=== PATIENT | male | born 1975 | race Caucasian/White ===

== ENCOUNTER 2017-04-26 21:01 | Emergency (ER) | payer SELFPAY, OTHER | END 2017-04-26 22:42 | disposition left against medical advice (07) | LOC: E/R 21:01 | DX: Z53.21 Procedure and treatment not carried out due to patient leaving prior to being seen by health care provider (principal) ==

== ENCOUNTER 2017-04-29 23:57 | Emergency (ER) | payer OTHER ==
[2017-04-30] MEDS: DIPHTH/TET/ACEL PERTUSS (ADULT) 0.5 ML VIAL IM* (04:06)
[2017-04-30] MEDS: LIDOCAINE 1% (MDV) 20 ML INJ SC (04:09)
== END 2017-04-30 04:32 | disposition home or self-care (01) ==
LOC: FTE 23:57
DX: L02.413 Cutaneous abscess of right upper limb (principal); L03.113 Cellulitis of right upper limb; F17.210 Nicotine dependence, cigarettes, uncomplicated; Z23 Encounter for immunization
CPT/HCPCS: 10060; 90471; 90715; 99284-25

== ENCOUNTER 2017-05-22 17:17 | Emergency (ER) | payer OTHER | END 2017-05-22 18:54 | disposition home or self-care (01) | LOC: FTE 17:17 | DX: G47.9 Sleep disorder, unspecified (principal); F17.210 Nicotine dependence, cigarettes, uncomplicated | CPT/HCPCS: 99283; Z7502 ==

== ENCOUNTER 2017-07-08 12:20 | Emergency (ER) | payer OTHER ==
[2017-07-08] MEDS: IBUPROFEN 600 MG TAB PO (13:26)
[2017-07-08] MEDS: HYDROCODONE/APAP (5/325) TAB PO (13:26)
== END 2017-07-08 15:51 | disposition home or self-care (01) ==
LOC: FTE 12:20
DX: S29.001A Unspecified injury of muscle and tendon of front wall of thorax, initial encounter (principal); F17.210 Nicotine dependence, cigarettes, uncomplicated; V18.4XXA Pedal cycle driver injured in noncollision transport accident in traffic accident, initial encounter
CPT/HCPCS: 99283-25; Z7502

== ENCOUNTER 2017-07-28 11:50 | Emergency (ER) | payer SELFPAY, OTHER | END 2017-07-28 15:13 | disposition left against medical advice (07) | LOC: FTE 15:13 | DX: Z53.21 Procedure and treatment not carried out due to patient leaving prior to being seen by health care provider (principal) ==

== ENCOUNTER 2017-07-28 15:00 | Emergency (ER) | payer OTHER | END 2017-07-28 15:33 | disposition home or self-care (01) | LOC: E/R 15:00 | DX: L02.415 Cutaneous abscess of right lower limb (principal); L02.413 Cutaneous abscess of right upper limb; Z87.891 Personal history of nicotine dependence | CPT/HCPCS: 99283; Z7502 ==

== ENCOUNTER 2017-07-29 20:49 | Emergency (ER) | payer SELFPAY, OTHER | END 2017-07-29 23:50 | disposition left against medical advice (07) | LOC: FTE 20:49 | DX: Z53.21 Procedure and treatment not carried out due to patient leaving prior to being seen by health care provider (principal) ==

== ENCOUNTER 2017-09-28 22:07 | Emergency (ER) | payer SELFPAY | END 2017-09-29 02:35 | disposition left against medical advice (07) | LOC: FTE 22:07 | DX: Z53.21 Procedure and treatment not carried out due to patient leaving prior to being seen by health care provider (principal) ==

== ENCOUNTER 2017-09-29 08:44 | Emergency (ER) | payer OTHER ==
[2017-09-29] MEDS: LIDOCAINE 1% (MDV) 20 ML INJ SC (09:13)
[2017-09-29] MEDS: CEFTRIAXONE 1 GM INJ IM (09:13)
== END 2017-09-29 09:50 | disposition home or self-care (01) ==
LOC: FTE 08:44
DX: L03.114 Cellulitis of left upper limb (principal); L02.414 Cutaneous abscess of left upper limb; F17.210 Nicotine dependence, cigarettes, uncomplicated
CPT/HCPCS: 96372; 99284-25

== ENCOUNTER 2017-10-02 09:25 | Emergency (ER) | payer OTHER ==
[2017-10-02] MEDS: LIDOCAINE 1% (MDV) 10 ML INJ INJ (10:06)
== END 2017-10-02 10:46 | disposition home or self-care (01) ==
LOC: FTE 09:25
DX: L02.414 Cutaneous abscess of left upper limb (principal); L03.114 Cellulitis of left upper limb; Z87.891 Personal history of nicotine dependence
CPT/HCPCS: 10060; 99283-25

== ENCOUNTER 2017-10-06 18:54 | Emergency (ER) | payer OTHER ==
[2017-10-06] MEDS ORDERED: AZITHROMYCIN 250 MG TAB PO (20:31)
[2017-10-06] MEDS ORDERED: MUPIROCIN 2% 22 GM OINT TOP (21:00)
[2017-10-06] MEDS ORDERED: CEFTRIAXONE 250 MG INJ IM (21:00)
[2017-10-06] MEDS ORDERED: SILVER SULFADIAZINE 1% 25 GM CR TOP (21:00)
[2017-10-06] MEDS ORDERED: ACYCLOVIR 800 MG TAB PO (21:00)
== END 2017-10-06 21:26 | disposition home or self-care (01) ==
LOC: FTE 18:54
DX: N50.89 Other specified disorders of the male genital organs (principal); F17.210 Nicotine dependence, cigarettes, uncomplicated
CPT/HCPCS: 87210; 99283

== ENCOUNTER 2017-11-04 14:27 | Emergency (ER) | payer OTHER | END 2017-11-04 15:41 | disposition home or self-care (01) | LOC: FTE 15:41 | DX: L03.116 Cellulitis of left lower limb (principal); M25.562 Pain in left knee; F17.210 Nicotine dependence, cigarettes, uncomplicated | CPT/HCPCS: 99283; Z7502 ==

== ENCOUNTER 2018-05-13 12:54 | Emergency (ER) | payer OTHER ==
[2018-05-13] MEDS: LIDOCAINE 1% (MDV) 20 ML INJ SC (17:00)
== END 2018-05-13 18:41 | disposition home or self-care (01) ==
LOC: FTE 12:54
DX: L02.413 Cutaneous abscess of right upper limb (principal); L02.414 Cutaneous abscess of left upper limb; F17.210 Nicotine dependence, cigarettes, uncomplicated
CPT/HCPCS: 10061; 99283-25

== ENCOUNTER 2018-08-15 17:35 | Emergency (ER) | payer OTHER ==
[2018-08-15] MEDS: IBUPROFEN 600 MG TAB PO (22:36)
[2018-08-15] MEDS: OXYCODONE/ACETAMINOPHEN (5/325) TAB PO (22:36)
== END 2018-08-16 00:43 | disposition home or self-care (01) ==
LOC: FTE 08-16 00:43
DX: S22.42XA Multiple fractures of ribs, left side, initial encounter for closed fracture (principal); S59.902A Unspecified injury of left elbow, initial encounter; V18.4XXA Pedal cycle driver injured in noncollision transport accident in traffic accident, initial encounter
CPT/HCPCS: 29105; 71046; 71100; 73080-LT; 73090; 73110-LT; 99284-25

== ENCOUNTER 2018-08-18 15:26 | Emergency (ER) | payer OTHER ==
[2018-08-18] MEDS: TRIMETHOPRIM/SULFAMETHOX (DS) TAB PO (17:16)
[2018-08-18] MEDS: CEPHALEXIN 250 MG CAP PO (17:16)
== END 2018-08-18 18:12 | disposition home or self-care (01) ==
LOC: FTE 15:26
DX: L02.414 Cutaneous abscess of left upper limb (principal); F17.210 Nicotine dependence, cigarettes, uncomplicated
CPT/HCPCS: 10060; 99283-25